=== PATIENT | male | born 1955 | race Caucasian/White ===

== ENCOUNTER 2016-11-23 11:13 | Emergency (ER) | payer OTHER ==
[2016-11-23] MEDS ORDERED: IOPAMIDOL 370 (76%) IV.SOLN 150 ML IV ONE (11:14)
[2016-11-23] MEDS ORDERED: FENTANYL 100 MCG/2 ML VIAL ONE ×2 (11:34→12:57)
[2016-11-23] MEDS ORDERED: LABETALOL HCL 5 MG/ML 20ML VIAL IV ONE (11:34)
[2016-11-23 11:58] LABS: BASO % 0.3 % (0.2-1.0); EOS # 0.4 (0.0-0.5); EOS % 4.8 % (0.9-2.9); HEMATOCRIT 40.9 % (32.0-52.0); IMM NEUT% 0.2 % (0-1); LYMPH # 1.6 (1.0-4.8); LYMPH % 17.7 % (15-45); MEAN CELL VOLUME 88.9 fl (80.0-94.0); MEAN CORPUSCULAR HEMOGLOBIN 28.3 pg (27.0-31.0); MEAN CORPUSCULAR HGB CONC 31.8 g/dl (33.0-37.0); MEAN PLATELET VOLUME 10.3 fl (7.4-10.4); MONO # 0.8 (0.0-0.8); MONO % 8.6 % (4-12); NEUT % 68.4 % (43-75); PLATELET COUNT 243 K/mm3 (130-400); RED CELL DISTRIBUTION WIDTH 14.1 % (11.5-14.5)
[2016-11-23 12:18] LABS: ALB/GLOB RATIO 1.1 (>1.0); ALBUMIN 3.9 gm/dL (3.5-5.7); CALCIUM 8.6 mg/dL (8.6-10.3)
--- NOTE | 2016-11-23 13:39 | CT ---
CTA ABD/PELVIS, CTA CHEST FOR DISSECTION COMPARISON: None. HISTORY: Sharp pains to right shoulder, arm, and neck. TECHNIQUE: Intravenous injection 150 mL Isovue 370. Using a [employer] Aquilion [address] scanner, images were obtained from the apex of the thorax to the pelvic floor. Under concurrent supervision and interpretation, requiring a separate 3-D workstation, the lead nuclear medicine technologist created 3-D CT angiograms. An automated dose reduction technique was used to minimize patient radiation dose. DOSE INFORMATION: CTDIvol (mGy): 7.70, 7.70, 205.10, 54.00 DLP(mGycm): 5407.30 FINDINGS: Pulmonary arteries and veins: Adequate contrast opacification, compromised by the patient's weight. No pulmonary embolism. Aorta: Normal. No dissection. Adequate contrast opacification. Heart and coronary arteries: Normal. Lungs: Normal. Trachea and bronchi: Normal. Mediastinum and ayan: Normal. Pleura and pericardium: Normal. Chest wall: Normal. Spine: No fracture. Moderate degenerative changes in the thoracolumbar spine. 3-D CT angiogram: Normal. FINDINGS (CT angiogram abdomen and pelvis): 3-D CT angiogram: Normal. Lung bases: Normal. Liver: Normal. Gallbladder: Normal. Bile ducts: Normal. Pancreas: Normal. Spleen: Normal. Adrenal glands: Normal. Kidneys: 10 mm cyst, lower pole the right kidney. Normal left kidney. Ureters: Normal. Urinary bladder: Normal. Prostate gland and seminal vesicles:: Normal Blood vessels: Normal. Lymph nodes: Normal. Stomach: Normal. Duodenum: Normal. Small intestine: Normal. Appendix: Normal. Colon: Normal. Abdominal wall and supporting musculature: Normal. Bones: Degenerative changes in the spine. No fracture. IMPRESSION: 1. CT angiogram of the thorax, abdomen, and pelvis, negative for dissection. No aortic aneurysm. Normal pulmonary arteries. 2. No acute finding. Incidentally noted 10 mm cyst in the lower pole the right kidney. Degenerative changes throughout the spine. Report was sent to the emergency department electronic medical record system, 11/23/2016 at 13:41
--- NOTE | 2016-11-23 13:43 | CT ---
CTA CAROTID W/ POST PROCESS COMPARISON: None. HISTORY: Right-sided neck pain, right scapular pain, right upper extremity pain with weakness. TECHNIQUE: [employer] Aquilion [address] scanner. Intravenous injection 150 mL Isovue-370. Contrast-enhanced images obtained from the aortic arch to the skull base. Under concurrent supervision and interpretation, requiring a separate 3-D workstation, the fastener technologist created 3-D CT angiograms. An automated dose reduction technique was used to minimize patient radiation dose. Dose information (combine with CT angiogram thorax, abdomen, and pelvis): CTDIvol (mGy): 7.70, 205.10, 54.00 DLP(mGycm): 5407.70 FINDINGS: Aortic arch: Normal. Brachiocephalic artery: Normal. Right common carotid artery: Normal. Right internal carotid artery: Minimal plaquing at the origin. No stenosis. Right external carotid artery: Normal. Right vertebral artery: Normal. Right subclavian artery: Normal. Left subclavian artery: Normal. Left common carotid artery: Normal. Left internal carotid artery: Minimal plaquing at the origin. Left external carotid artery: Normal. Left vertebral artery: Normal. Internal jugular veins: Normal. Airway: Normal Lymph nodes: Normal Salivary glands: Normal Thyroid gland: Normal. Muscles: Normal. Spine: Moderate degenerative changes throughout the cervical spine. Superior mediastinum: Normal Lung apices: Normal. IMPRESSION: 1. Minimal atherosclerotic plaquing at the origins of both internal carotid arteries. No stenosis. 2. Incidentally noted multilevel spondylosis throughout the cervical spine. Report was sent to the emergency department electronic medical record system 11/23/2016 at 13:45
== END 2016-11-23 14:15 | disposition home or self-care (01) ==
LOC: ED 11:13
DX: M54.2 Cervicalgia (principal); M79.601 Pain in right arm; I10 Essential (primary) hypertension; Z87.891 Personal history of nicotine dependence
CPT/HCPCS: 85025; 80053; 84484; 74174; 71275; 70498; 96375; 96376; 99284 ×2; 96374; 93005; J3010 ×2; Q9967